=== PATIENT | female | born 1990 | race Caucasian/White ===

== ENCOUNTER → 2018-01-26 12:31 | Observation (INO) ==
[2018-01-26 10:23] LABS: Amphetamine Screen,Urine Negative ng/mL (Cutoff=1000); Barbiturate Screen,Urine Negative ng/mL (Cutoff=200); Benzodiazepines Screen,Urine Negative ng/mL (Cutoff=200); Cannabinoid Screen,Urine Negative ng/mL (Cutoff = 50); Cocaine Screen,Urine Negative ng/mL (Cutoff= 300); Opiate Screen,Urine Negative ng/mL (Cutoff=300); Phencyclidine Screen,Urine Negative ng/mL (Cutoff=25)
[2018-01-26 11:49] LABS: Bilirubin,Urine Negative (Negative); Blood,Urine Negative (Negative); Clarity,Urine Cloudy (Clear); Color,Urine Yellow (Yellow); Glucose,Urine (UA) Normal (Normal); Ketones,Urine Negative (Negative); Leukocyte Esterase,Urine Moderate (Negative); Nitrite,Urine Negative (Negative); PH,Urine 6.5 pH Units (5.0-8.0); Protein,Urine Negative (Neg-Trace); Specific Gravity,Urine 1.017 (1.010-1.025); Urobilinogen,Urine Normal (Normal)
[2018-01-26 11:51] LABS: Bacteria,Urine Many per hpf (None-Few); Hyaline Casts,Urine None Seen per lpf (None-Few); Squamous Epithelial Cell,Urine Many per lpf (None-Few); WBC,Urine 30-50 per hpf (0-3)
--- NOTE | 2018-01-26 11:57 | OB/GYN Progress Note ---
Date of Encounter: 01/26/18 Time of Encounter: 11:53 - Assessment and Plan (1) 25 weeks gestation of Current Visit: Yes Status: Acute (2) Abdominal cramping Current Visit: Yes Status: Acute 1. heart tracing shows good variability with baseline in the 150 range. Tocometer shows no evidence of uterine contraction. 2. Patient to be discharged to home care with precautions noted. 3. Plan discussed in depth with patient. The patient was encouraged to ask questions or state any concerns, which she did not have at this time. Patient is agreement with this plan. Subjective - Subjective Principal diagnosis: Abdominal cramps Interval history: Patient is a 27-year-old primigravida female presenting to [facility] labor and delivery at 25 weeks +3 days gestation for evaluation of labor. Patient states that she has experienced 2 days of intermittent abdominal cramping, which the patient describes being mild to moderate nature, in the anterior portion of her abdomen without radiation. The patient denies provocation or relieving factors. The patient states that she came to the hospital today over concerns for abdominal cramping in light of plans for she and her to travel to [place] later this evening. 1. Patient admits to one previous episode of abdominal cramping in the first trimester of this . Patient states that her doctor told her this was related to the dehydration, and that the cramps resolved spontaneously without intervention. 2. Patient admits to history of gallbladder disease, which is tentatively scheduled for cholecystectomy postdelivery. Review of systems: 1. The patient denies headache, vision changes, lightheadedness, dizziness, or difficulty with ambulation. 2. Patient denies chest pain and shortness of breath 3. The patient admits to nausea that is well controlled on home care with Zofran, but denies further abdominal pains, vomiting, or pain in her back. 4. The patient admits to intermittent mild to moderate edema in bilateral lower extremities throughout . Exam: General: Upon initial assessment patient sitting upright in hospital bed, she appears alert and oriented. She is engaged to conversation, pleasant, answers questions appropriately, speech is fluid, there appear to be no focal neurological deficits. Mood and affect appear consistent with environment. Cardiac: Rhythm and rate regular, no murmurs gallops or rubs appreciated, S1 and S2 auscultated without S3 or S4 noted. Lungs: Clear to auscultation bilaterally, there is no evidence of wheezes, stridor or rhonchi. Abdomen: Abdomen is soft, gravid, nontender to palpation. There is no rebound or guarding noted. Extremities: Pulses intact in all 4 extremities, there is no evidence of cyanosis or edema present. Antepartum ROS: movement normal, no loss of fluid, no vaginal bleeding Objective - Vital Signs Vital Signs: Intake and Output 01/25/18 01/26/18 01/26/18 23:59 07:59 15:59 Other: Weight 74.389 kg Patient Weight 01/26/18 23:59 Weight 74.389 kg - Exam FHR: auscultation normal Auscultation: bilateral: normal Abdomen: Present: normal appearance, soft, gravid. Absent: rigidity, organomegaly, tenderness, bruits Uterus: Present: normal, firm. Absent: bogginess, tenderness
[2018-01-26 12:05] LABS: RBC,Urine 0-3 per hpf (0-3)
--- NOTE | 2018-01-26 12:26 | Discharge Summary ---
Date of Encounter: 01/26/18 Time of Encounter: 12:27 - Discharge Diagnosis (1) Placenta previa antepartum in second trimester Priority: Secondary Status: Acute Comments: Patient reports previa has resolved (2) 25 weeks gestation of Priority: Primary Status: Acute Comments: admitted for observation No UCs noted on [place] Urinalysis wnl (3) Abdominal cramping Priority: Secondary Status: Acute Comments: Interventions discussed - Discharge Medications Home Medications: Vit/Iron Fumarate/FA [ Tablet] 1 each PO 01/26/18 [History] RX: Docusate [Colace] 100 mg PO BID 01/26/18 [History] Allergies/Adverse Reactions: 3 Allergy/AdvReac Type Severity Reaction Status Date / Time No Known Allergies Allergy Verified 01/26/18 10:02 Data Procedures and tests throughout hospitalization: Laboratory Tests 01/26/18 01/26/18 09:05 09:05 Urine Color Yellow Urine Clarity Cloudy A Urine pH 6.5 Ur Specific [place] 1.017 Urine Protein Negative Urine Glucose (UA) Normal Urine Ketones Negative Urine Blood Negative Urine Nitrite Negative Urine Bilirubin Negative Urine Urobilinogen Normal Ur Leukocyte Esterase Moderate H Urine Microscopic RBC 0-3 Urine Microscopic WBC 30-50 H Ur Squamous Epith Cells Many H Urine Bacteria Many H Hyaline Casts None Seen Ur Culture Indicated? NO. A Urine Opiates Screen Negative Ur Barbiturates Screen Negative Ur Phencyclidine Scrn Negative Ur Amphetamines Screen Negative U Benzodiazepines Scrn Negative Urine Cocaine Screen Negative U Marijuana (THC) Screen Negative Ur Drug Screen Interp See Below Labs on day of discharge: Labs from last 24 hours 01/26/18 01/26/18 09:05 09:05 Urine Color Yellow Urine Clarity Cloudy A Urine pH 6.5 Ur Specific [place] 1.017 Urine Protein Negative Urine Glucose (UA) Normal Urine Ketones Negative Urine Blood Negative Urine Nitrite Negative Urine Bilirubin Negative Urine Urobilinogen Normal Ur Leukocyte Esterase Moderate H Urine Microscopic RBC 0-3 Urine Microscopic WBC 30-50 H Ur Squamous Epith Cells Many H Urine Bacteria Many H Hyaline Casts None Seen Ur Culture Indicated? NO. A Urine Opiates Screen Negative Ur Barbiturates Screen Negative Ur Phencyclidine Scrn Negative Ur Amphetamines Screen Negative U Benzodiazepines Scrn Negative Urine Cocaine Screen Negative U Marijuana (THC) Screen Negative Ur Drug Screen Interp See Below Date of admission: 01/26/18 08:27 Primary care physician: Lesia Cartagena Discharging clinician: Aurelia Purvis Anticipated date of discharge: 01/26/18 - Patient Status Disposition: Home, Self-Care Condition: Good Functional capacity at discharge: independent ambulation - Discharge Instructions Follow Up With: Lesia Cartagena MD [Primary Care Provider] - Rebecca Ruffin MD [Partnered Physician] - Additional Instructions: LABOR AND DELIVERY DISCHARGE INSTRUCTIONS Signs and Symptoms to be Reported to your Doctor Immediately: * Sudden gush, continuous or intermittent lead of fluid from vagina (note the time of gush and color of fluid) * Onset of bright red vaginal bleeding with or without pain (if you had a vaginal exam during this visit you may notice some dark red spotting. This is normal.) * Lower abdominal cramping or backache that is premenstrual-like feeling. * More than 6 contractions in one hour. * Burning during urination, having to urinate more frequently or pain in your mid-back. * A change in the baby's activity. This could be an increase or decrease in activity. * Severe headache which does not go away with tylenol. * Sudden swelling in the face, hands, arms and/or legs. * Upper abdominal pain - sometimes associated with heartburn or nausea and is not relieved by Maalox, Mylanta or Tums. * Dizziness or blurred vision or visual disturbances (seeing stars/lights). * Kick Counts One hour after a meal, lay down on one side in a quiet place. Count the number of hawk the baby moves during an hour. If less than 6 movements, notify your physician. Diet: *Force fluids - 8-10 tall glasses of fluid per day. May include popsicles and jello. 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 Patient reports +FM denies LOF or VB. Patient is unsure if pain could be contractions. Patient is planning a trip out of town and wanted to make sure she wasn't sugey. Time Attestation: Total time spent providing and/or coordinating discharge services: Time Spent: Less than 30 minutes Exam - Constitutional General appearance IM: A&O X 3, pleasant, answers questions appropriately - Respiratory Respiratory exam: Present: CTAB - Cardiovascular Cardiovascular exam IM: Present: RRR, +S1, +S2 - GI/Abdominal GI/Abdominal exam IM: normal bowel sounds - Extremities Exam Additional comments: no abdominal tenderness noted on exam. FHR 140 bpm appropriate for gestational age - VTE Reasons for not Prescribing Prophylaxis: Treatment not Indicated - Low risk for VTE
== END | disposition home or self-care (01) ==
LOC: 1NENULAB
PROVIDERS: ADMIT Obstetrics & Gynecology; ATTEND Obstetrics & Gynecology

== ENCOUNTER 2018-05-13 03:38 | Inpatient (IN) ==
[~2018-05-13 03:38] MED LIST: *HR* Nalbuphine 10 MG/ML AMPUL IVP PRN; Famotidine 20 MG/2 ML VIAL IVP PRN; Lidocaine 1% 20 ML MDV ID PRN; Metoclopramide 10 MG/2 ML VIAL IVP PRN; Ondansetron 4 MG/2 ML VIAL IVP PRN
[2018-05-13] MEDS ORDERED: Ringers Solution, Lactated 1,000 ML IVC SCH (03:45)
[2018-05-13] MEDS ORDERED: Penicillin G Potassium 5,000,000 UNIT in 0.9 % Sodium Chloride Mini Bag 100 ML IVPB ONE (04:08)
[2018-05-13 04:21] LABS: Basophils % 0.1 %; Eosinophils # 0.1 K/mcL (0.0-0.6); Eosinophils % 1.3 %; Hematocrit 35.5 % (35.3-44.9); Immature Granulocytes % 0.5 % (0-4); Lymphocytes # 1.8 K/mcL (0.6-4.6); Mean Corpuscular HGB Conc 33.8 g/dL (31.6-35.5); Mean Corpuscular Hemoglobin 30.5 pg (28.0-33.3); Mean Corpuscular Volume 90.1 fL (83.0-100.0); Mean Platelet Volume 10.7 fL (9.4-12.4); Monocytes # 0.8 K/mcL (0.0-1.3); Monocytes % 9.1 %; Neutrophils # 5.7 K/mcL (1.6-8.9); Platelet Count 182 K/mcL (140-400); Red Blood Count 3.94 M/mcL (3.82-4.97); Red Cell Distribution Width 12.7 % (11.5-14.5)
[2018-05-13 04:30] LABS: Amphetamine Screen,Urine Negative ng/mL (Cutoff=1000); Barbiturate Screen,Urine Negative ng/mL (Cutoff=200); Benzodiazepines Screen,Urine Negative ng/mL (Cutoff=200); Cannabinoid Screen,Urine Negative ng/mL (Cutoff = 50); Cocaine Screen,Urine Negative ng/mL (Cutoff= 300); Opiate Screen,Urine Negative ng/mL (Cutoff=300); Phencyclidine Screen,Urine Negative ng/mL (Cutoff=25)
--- NOTE | 2018-05-13 07:44 | Anesthesia Evaluation PreOp ---
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: Denies Any Significant HX Other Medical History: Denies Any Significant HX, GERD Anesthesia History: No Prior Anesthetic Complications, Past Anesthesia (adenotonsillectomy) : Yes Alcohol Use: none Drug use: none Medications and Allergies Docusate [Colace] 100 mg PO BID 01/26/18 [History] Vit/Iron Fumarate/FA [ Tablet] 1 each PO DAILY 01/26/18 [History] Adult Probiotic 1 tab PO BID 05/13/18 [History] Fibercon 1 tab PO BID 05/13/18 [History] Magnesium 1 tab PO BID 05/13/18 [History] Vitamin D 1 tab PO BID 05/13/18 [History] Allergy/AdvReac Type Severity Reaction Status Date / Time No Known Allergies Allergy Verified 05/13/18 03:59 - Meds/Allergy Pre-op Review Medications Reviewed: Yes Allergies Reviewed: Yes Beta Blockers on Current Med List: No Anesthesia Results - Labs 05/13/18 04:05 Anesthesia Exam BP 118/71 P75 R16 T 98.5 Height: 5'4" Weight: 176lb NPO (# of Hours): 3 Pain Scale: 7 Pain Scale Used: Numeric (1 - 10) - HEENT Pupil (Motor): Pupils equal Mallampati: II Teeth: Normal Oral Opening: Greater than 3 - MANUFACTURING BAKER LOC: Oriented MANUFACTURING [employer] Motor: Normal RUE, Normal LUE, Normal RLE, Normal LLE, Normal Face MANUFACTURING [employer]AKER Sensory: Normal: RUE, LUE, RLE, LLE, Face - Cardiac Rhythm: Regular Murmur: None JVD: No Carotid Bruit: No - Pulmonary Breath Sounds: bilateral Clear Respiratory Effort: Symmetrical Anesthesia Assess/Plan ASA Score: 2 Level of consciousness: Cooperative Anesthetic Plan: Epidural Autologous Blood: No Monitoring Plan: Standard Monitors Recovery Plan: Other
[2018-05-13] MEDS ORDERED: EPHEDrine 50 MG/ML VIAL IVP PRN (08:04)
[2018-05-13] MEDS ORDERED: *HR* Ropivacaine/PF 0.2% 20 ML VIAL EP ONE (08:04)
[2018-05-13] MEDS ORDERED: Ondansetron 4 MG/2 ML VIAL IVP PRN (08:04)
[2018-05-13] MEDS ORDERED: *HR* FentaNYL (PF) 100 MCG/2 ML VIAL EP ONE (08:04)
[2018-05-13] MEDS ORDERED: Naloxone 0.4 MG/ML INJ IVP PRN (08:04)
--- NOTE | 2018-05-13 08:10 | OB/GYN History & Physical ---
Date of Encounter: 05/13/18 Time of Encounter: 07:55 Assessment and Plan (1) 40 weeks gestation of Current visit: Yes Status: Acute Admitted for labor, post dates Expectant management Consider augmentation 4 hrs after PCN dose Epidural when patient desires (2) NST (non-stress test) reactive Current visit: Yes Status: Acute FHR 140 bpm, moderate variability, +15x15 accels, occasional variable deceleration. Dr. Woodruff aware (3) Group beta Strep positive Current visit: Yes Status: Acute Initiate PCN GBS prophylaxis Continue q4 hrs until delivery History of Present Illness Chief complaint: Labor HPI: Mrs. Bardales is a 27 year old female at 40w5 days who presents in spontaneous labor. She states her contractions woke her from her sleep at 2330 last evening. They were regular in timing so she came in. She reports positive movement, denies bleeding and vaginal leakage. Her has been uncomplicated outside of early placenta previa which is now resolved. Blood type A+ GBS Positive HBSAG neative Rubella Immune Varicella Immune T Pall Negative HIV non reactive Past Med Surg Social Fam HX - Past Medical History Source: patient Medical history: other Additional medical history: gall bladder disease (will have removed after delivery) Psychiatric history: no psych history - Past Surgical History Additional surgical history: T & A, lap for endometriosis - Social History Smoking Status: Never smoker Smokeless Tobacco Status: No Alcohol use: none Drug use: none Current living situation: Home - Independent, With Family Activity Level: Independent ambulation Recent Out of Country Travel Within the Last 8 Weeks: No Exposure or Possible Exposure to Illness During Travel: No - Family History Mother Family Member Ethnicity: Non- Hx Family Medical Disorders: Yes (Blood clots) Obstetrical History - Pregnancies : 1 Para: 0 Term: 0 : 0 Ab's: 0 Livin Medications and Allergies Docusate [Colace] 100 mg PO BID 01/26/18 [History] Vit/Iron Fumarate/FA [ Tablet] 1 each PO DAILY 01/26/18 [History] Adult Probiotic 1 tab PO BID 05/13/18 [History] Fibercon 1 tab PO BID 05/13/18 [History] Magnesium 1 tab PO BID 05/13/18 [History] Vitamin D 1 tab PO BID 05/13/18 [History] Allergy/AdvReac Type Severity Reaction Status Date / Time No Known Allergies Allergy Verified 05/13/18 03:59 Exam - Constitutional Constitutional: well developed, well nourished, no acute distress, average body habitus - Neck Neck exam: full ROM, normal inspection - Lungs Respiratory exam: CTAB - Cardiovascular Cardiovascular exam: RRR, +S1, +S2 - Breasts Breast: bilateral: normal - Abdomen Abdomen: Present: bowel sounds normal, gravid, non tender - Extremities Extremities exam: full ROM, normal capillary refill, normal inspection Deep Tendon Reflex Grade: 2+ Normal - Vulva Vulva: bilateral: normal - Vagina Vagina: Present: normal moisture - Cervix Dilation: 3 (Per RN exam) Effacement: 100 Station: 0 - Uterus Uterus exam: Present: normal size Results Result Diagrams: 05/13/18 04:05 All other labs normal. - VTE Reasons for not Prescribing Prophylaxis: Treatment not Indicated - Low risk for VTE
[2018-05-13] MEDS ORDERED: Epidural Premix (fent/bupiv) 110 ML EP SCH (08:15)
[2018-05-13] MEDS: Penicillin G Potassium 2,500,000 UNIT in 0.9 % Sodium Chloride 100 ML IVPB SCH ×3 (08:36→16:39)
--- NOTE | 2018-05-13 08:52 | OB Labor Progress Note ---
Date of Encounter: 05/13/18 Time of Encounter: 08:52 Labor Progress Note - Subjective Subjective: Patient coping well with contractions. and family members in room for support. - Vital Signs Vital Signs: WNL - Cervix Cervix: 3-4/100/0 - Heart Tones Heart Tones: 140 bpm, moderate variability, +15x15 accels, no decels. - [place]: Irregular contractions - Interventions Interventions: SVE Discussed options with patient for AROM or Pitocin augmentation. Patient prefers to AROM instead of Pitocin augmentation so she can continue intermittent monitoring. AROM for scant amount of clear fluid. - Plan Plan: Continue expectant management Intermittent monitoring May have IV pain medication or epidural when she desires.
[2018-05-13] MEDS ORDERED: Lidocaine -MPF 2% 5 ML VIAL ONE (11:18)
[2018-05-13] MEDS ORDERED: *HR* FentaNYL (PF) 100 MCG/2 ML VIAL ONE (11:18)
--- NOTE | 2018-05-13 12:06 | Anesthesia Procedures ---
Date of Encounter: 05/13/18 Time of Encounter: 11:28 Procedures: Anesthesia - Epidural/Spinal Patient ID/Chart reviewed: Yes Patient examined: Yes OB Eval: Gestational age: 40.5 OB Eval: : 1 OB Eval: Hx Para: 0 OB Eval: Dilated at (cm): 4 OB Eval: Contractions: Non-stressed pattern Consent Obtained: Yes Supplemental Oxygen: None/Room Air Site Prep: Aseptic Technique, Sterile prep and drape, Povidone-Iodine 1% Patient position: upright Local Anesthetic: Lidocaine 1% Amount of Local Anesthetic used: 3 Touhy Needle Gauge: 18 Touhy Needle Depth (cm): 5 Catheter Depth at Skin (cm): 15 Test Dose (1.5% Lido + Epi): Volume given (mls): 3 Test Dose Result: Negative Loading Dose: Fentanyl (mcg): 100 Loading Dose: Other: Ropivicaine 0.2% 10ml Loading Dose Administered: Thru Catheter Infusion Med: 0.125% Bupivacaine w/ 2 mcg/ml Fentanyl Infusion Rate (mls/hr): [address]: Tegaderm, Tape Interspace Used: L3-L4 Loss of Resistance (PEMA): Yes Blood: No CSF: No Paresthesia: No Procedure: OLIVIA placed 1st pass in upright position without any immediate noted complications. VSS and FHT stable throughout. Vitals + FHT's: 1128 BP 123/85 P 90 R 18 1154 BP 105/62 P 96 R 16 FHT 130s
--- NOTE | 2018-05-13 12:08 | OB Labor Progress Note ---
Date of Encounter: 05/13/18 Time of Encounter: 12:06 Labor Progress Note - Subjective Subjective: Patient resting comfortably with epidural in place. Patient denies any pain at this time. discussed POC with patient. Patient denies any questions or concerns. - Heart Tones Heart Tones: 130 bpm moderate variability +x accels no decels noted. - [place]: 2.5-3 min apart - Interventions Interventions: Discussed POC with patient Dr. Woodruff updated on patient's status - Plan Plan: Continue labor management. Anticipate
[2018-05-13] MEDS ORDERED: Oxytocin 20 units/ LR 1000 mL 20 UNIT/1,000 ML BAG IVC SCH ×2 (13:45→21:06)
--- NOTE | 2018-05-13 16:36 | OB Labor Progress Note ---
Date of Encounter: 05/13/18 Time of Encounter: 16:34 Labor Progress Note - Subjective Subjective: Patient resting comfortably with epidural. Patient denies any questions or concerns. - Cervix Cervix: 9.5/100/+1 - Heart Tones Heart Tones: 125 bpm moderate variability +15x15 accels early decels noted. - [place]: 2-3 min apart - Interventions Interventions: SVE EFM and toco reviewed - Plan Physician notified: Yes Physician notified details: Dr. Woodruff updated on patient's status and POC Plan: Continue labor management Patient repositioned anticipated
--- NOTE | 2018-05-13 19:39 | OB/GYN Procedure Note ---
Delivery - Delivery Date: 05/13/18 Provider: Aurelia Purvis Intrapartum events: none Delivery induction: none Delivery augmentation: rupture of membranes, pitocin Delivery monitor: external FHT, external uterine Anesthesia: epidural Quantitated Blood Loss: 200 - Infant (s) Infant A Delivery Date: 05/13/18 Delivery Time: 19:01 Presentation: vertex Position: OA Route of delivery: Gender: Male Viability: Viable Pounds: 8 Ounces: 7 at 1 minute: 6 at 5 mins: 9 Shoulder Dystocia: not encountered Shoulder Dystocia Maneuvers: suprapubic pressure Placenta: spontaneous, uterine exploration Cord: nuchal cord (X1), 3 umbilical vessels, nuchal cut - Repair Episiotomy: none Laceration Description: Perineal - 2nd Degree, Labial (right) - Complications Delivery complications: none - Disposition Mom disposition: stable in LDR disposition: stable in LDR - Comments Comments: Called to LDR, patient reports feeling pressure. Patient was placed in stirrups and began pushing with contractions. Patient was prepped for vaginal delivery. The infant head was delivered OA. A tight nuchal cord was noted and due to infant position was unable to be clamped at this time for delivery. Dr. Woodruff was called to Delivery room with the next contraction infant progressed passed shoulders and cord was cut and was delivered and placed on maternal abdomen. The perineal laceration was evaluated by Dr. Woodruff, he also performed a rectal exam then declared the laceration to be a second degree laceration and was repaired by CNM. A right labial laceration was also noted and repaired with 3-0 vicryl. Patient tolerated well. Placenta delivered spontaneously and intact. EBL 200. Both and mother stable in LDR for 2 hour recovery.
[2018-05-13] MEDS ORDERED: *HR* HYDROcodone/Acet 5/325 mg TABLET PO PRN (21:06)
[2018-05-13] MEDS ORDERED: Benzocaine/Menthol 56 GM AEROSOL SPRAY TP PRN (21:06)
[2018-05-13] MEDS ORDERED: Measles/Mumps/Rubella Vacc 0.5 ML VIAL SQ PRN (21:06)
[2018-05-13] MEDS: Ibuprofen 600 MG TABLET PO PRN (22:01)
[2018-05-14] MEDS: Acetaminophen 325 MG TABLET PO PRN ×2 (01:57→19:34)
[2018-05-14] MEDS: Ibuprofen 600 MG TABLET PO PRN ×4 (04:04→23:14)
[2018-05-14] MEDS: Prenatal Vit/FA 1 EACH TABLET PO SCH (07:21)
--- NOTE | 2018-05-14 09:10 | OB/GYN Progress Note ---
Date of Encounter: 05/14/18 Time of Encounter: 09:08 - Assessment and Plan (1) Vaginal delivery Current Visit: Yes Status: Acute Continue routine care Anticipate discharge home tomorrow (2) Breast feeding status of mother Current Visit: Yes Status: Acute consult when necessary Subjective - Subjective Principal diagnosis: s/p Interval history: Feeling well. Out of bed without dizziness. Some perineal discomfort-using ice pack. Cramping minimal, using ibuprofen. well - concern for timing - education given. Some nipple soreness. Voiding without difficulty. Passing flatus, no BM yet. Tolerating regular diet. Patient reports: appetite normal, voiding normally, pain well controlled, ambulating normally : doing well, nursing well Objective - Latest Vital Signs Latest vital signs: Vital Signs Temp Pulse Resp BP Pulse Ox 05/14/18 07:30 98.0 F 84 16 101/64 05/14/18 04:06 98.1 F 79 16 102/66 96 05/13/18 23:52 97.7 F 88 16 105/68 96 05/13/18 22:47 98.4 F 92 18 106/65 96 05/13/18 21:45 98.0 F 89 16 109/67 97 Intake and Output 05/13/18 05/14/18 05/14/18 23:59 07:59 15:59 Intake Total 200 / 200 Output Total 500 / 500 1050 / 1050 Balance -500 / -500 -850 / -850 Intake: Oral 200 / 200 Output: Urine 500 / 500 1050 / 1050 Other: Weight 76 kg 75.4 kg Patient Weight 05/14/18 23:59 Weight 75.4 kg - Exam Lungs: bilateral: normal Chest: Normal S1, Normal S2 Extremities: Present: normal Abdomen: Present: normal appearance, soft, gravid Uterus: Present: normal, firm Uterus Position: 1 Finger Below Umbilicus, Midline Comments: Breasts: Soft, nontender; nipples intact without erythema
[2018-05-14] MEDS: Lanolin 7 G OINT...G. TP PRN ×2 (09:54→19:33)
[2018-05-15] MEDS: Ibuprofen 600 MG TABLET PO PRN (05:56)
[2018-05-15] MEDS: Prenatal Vit/FA 1 EACH TABLET PO SCH (07:23)
--- NOTE | 2018-05-15 08:38 | Discharge Summary ---
Date of Encounter: 05/15/18 Time of Encounter: 08:36 - Discharge Diagnosis (1) Status post vaginal delivery Priority: Primary Status: Acute Comments: Patient doing well day 2 post vaginal delivery. She reports tolerating regular diet, voiding without difficulty, pain well controlled with Motrin. Patient is concerned that she has not had a bowel movement yet. Will discharge home with stool softener and suppositories. States she has had constipation issues all throughout her . Discharge home today (2) Second degree perineal laceration during delivery Priority: Secondary Status: Acute Comments: Dermoplast spray as needed Motrin for pain control (3) Breast feeding status of mother Priority: Secondary Status: Acute Comments: support as necessary Patient states she has a breast pump at home - Discharge Medications Prescriptions: Ibuprofen [Motrin] 600 mg PO Q6HR PRN #60 tablet PRN Reason: Cramping Bisacodyl [Dulcolax] 10 mg RC DAILY PRN #7 supp.rect PRN Reason: Constipation Docusate [Colace] 100 mg PO BID #60 capsule Home Medications: Vit/Iron Fumarate/FA [ Tablet] 1 each PO DAILY 01/26/18 [History] Adult Probiotic 1 tab PO BID 05/13/18 [History] Fibercon 1 tab PO BID 05/13/18 [History] Magnesium 1 tab PO BID 05/13/18 [History] Vitamin D 1 tab PO BID 05/13/18 [History] Acetaminophen [Tylenol] 650 mg PO Q6HR PRN tablet 05/15/18 [Rx] Benzocaine/Menthol Jennings [Dermoplast Jennings] 1 appl TP QID PRN aerosol 05/15/18 [Rx] Bisacodyl [Dulcolax] 10 mg RC DAILY PRN #7 supp.rect 05/15/18 [Rx] Calcium Polycarbophil [Fibercon] 1,250 mg PO BID tablet 05/15/18 [Rx] Docusate [Colace] 100 mg PO BID #60 capsule 05/15/18 [Rx] Ibuprofen [Motrin] 600 mg PO Q6HR PRN #60 tablet 05/15/18 [Rx] Lanolin [Lansinoh] 1 appl TP TID PRN oint...g. 05/15/18 [Rx] Mupirocin [Bactroban Oint] 1 appl NS BID tube 05/15/18 [Rx] Allergies/Adverse Reactions: Allergy/AdvReac Type Severity Reaction Status Date / Time No Known Allergies Allergy Verified 05/13/18 03:59 Data Procedures and tests throughout hospitalization: Laboratory Tests 05/13/18 05/13/18 04:05 04:05 WBC 8.4 RBC 3.94 Hgb 12.0 Hct 35.5 MCV 90.1 MCH 30.5 MCHC 33.8 RDW 12.7 Plt Count 182 MPV 10.7 Immature Gran % 0.5 Seg Neutrophils % 68.0 Lymphocytes % 21.0 Monocytes % 9.1 Eosinophils % 1.3 Basophils % 0.1 Neutrophils # 5.7 Lymphocytes # 1.8 Monocytes # 0.8 Eosinophils # 0.1 Basophils # 0.0 Urine Opiates Screen Negative Ur Barbiturates Screen Negative Ur Phencyclidine Scrn Negative Ur Amphetamines Screen Negative U Benzodiazepines Scrn Negative Urine Cocaine Screen Negative U Marijuana (THC) Screen Negative Ur Drug Screen Interp See Below Date of admission: 05/13/18 03:38 Primary care physician: PCP NONE Consults: 05/13/18 21:06 Consult to Speech And Language Tutor [CONS] Routine Comment: Vaginal delivery, consult needed Discharging clinician: Etelvina Preciado Anticipated date of discharge: 05/15/18 - Patient Status Disposition: Home, Self-Care Condition: Good Functional capacity at discharge: independent ambulation Overall status at discharge: patient is progressing back to baseline - Discharge Instructions Follow Up With: NONE,PCP [Primary Care Provider] - Rebecca Ruffin MD [Partnered Physician] - - Diet and Activity Activity: resume usual activities as tolerated Diet: regular diet Hospital Course Reason for admission: active labor, IUP - Delivery: Episiotomy: none Laceration: 2nd degree Other procedures: none complications: none Discharge diagnosis: IUP at term delivered baby: male Hospital course: Patient meeting day 2 milestones. Voiding without difficulty, tolerating regular diet, pain well-controlled with Motrin. No bowel movement since delivery. Patient reports issues with constipation during and is concerned that she has not had a bowel movement yet. She was reassured that this is normal and instructed to continue Colace and eating a high-fiber diet o nce she goes home. Prescription given for bisacodyl as needed. Will discharge patient home today with Motrin for pain. To follow-up in 4 weeks as scheduled with Dr. Ruffin. Delivery - Delivery Date: 05/13/18 Provider: Aurelia Purvis Intrapartum events: none Delivery induction: none Delivery augmentation: rupture of membranes, pitocin Delivery monitor: external FHT, external uterine Anesthesia: epidural Quantitated Blood Loss: 200 - Infant (s) A Delivery Date: 05/13/18 Delivery Time: 19:01 Presentation: vertex Position: OA Route of delivery: Gender: Male Viability: Viable Pounds: 8 Ounces: 7 at 1 minute: 6 at 5 mins: 9 Shoulder Dystocia: not encountered Shoulder Dystocia Maneuvers: suprapubic pressure Placenta: spontaneous, uterine exploration Cord: nuchal cord (X1), 3 umbilical vessels, nuchal cut - Repair Episiotomy: none Laceration Description: Perineal - 2nd Degree, Labial (right) - Complications Delivery complications: none - Disposition Mom disposition: stable in LDR [place] disposition: stable in LDR - Comments Comments: Called to LDR, patient reports feeling pressure. Patient was placed in stirrups and began pushing with contractions. Patient was prepped for vaginal delivery. The infant head was delivered OA. A tight nuchal cord was noted and due to infant position was unable to be clamped at this time for delivery. Dr. Woodruff was called to Delivery room with the next contraction progressed passed shoulders and cord was cut and infant was delivered and placed on maternal abdomen. The perineal laceration was evaluated by Dr. Woodruff, he also performed a rectal exam then declared the laceration to be a second degree laceration and was repaired by CNM. A right labial laceration was also noted and repaired with 3-0 vicryl. Patient tolerated well. Placenta delivered spontaneously and intact. EBL 200. Both infant and mother stable in LDR for 2 hour recovery. Time Attestation: Total time spent providing and/or coordinating discharge services: Time Spent: Less than 30 minutes Exam - Constitutional Vitals: Temp Pulse Resp BP Pulse Ox 98.1 F 98 14 109/77 96 05/14/18 20:00 05/14/18 20:00 05/14/18 20:00 05/14/18 20:00 05/14/18 20:00 General appearance IM: A&O X 3, pleasant, no acute distress, answers questions appropriately - Respiratory Respiratory exam: Present: CTAB - Cardiovascular Cardiovascular exam IM: Present: RRR, +S1, +S2 - GI/Abdominal GI/Abdominal exam IM: normal bowel sounds - Rectal Rectal exam: deferred - Uterine Tone: Firm Uterus Position: 2 Fingers Below Umbilicus - Extremities Exam Extremities exam IM: Present: full ROM, normal capillary refill, normal inspection - Neurological Exam Neurological exam: alert, normal gait, oriented X3
[2018-05-15 08:42] VITALS: BP 109/69
== END 2018-05-15 11:00 | disposition home or self-care (01) | DRG 807 ==
LOC: 1NENULAB → 1NENUOBS 22:00
PROVIDERS: ADMIT Registered Nurse; ATTEND Registered Nurse